=== PATIENT | male | born 1940 | race Caucasian/White ===

== ENCOUNTER 2017-01-13 10:56 | Emergency (ER) | payer MEDICARE ==
[~2017-01-13] VITALS: Ht 175.3 cm; Wt 68.5 kg
[~2017-01-13 10:56] MED LIST: ALFUZOSIN HCL10 MG PO; AMLODIPINE BESYL5 MG PO; ANDROGEL2.5 GM TD; ANDROGEL75 G1 TOP; ARICEPT10 MG PO; ASPIRIN EC325 MG PO; ATENOLOL50 MG PO; CITALOPRAM HBR20 MG PO; ELIQUIS5 MG PO; FLUTICASONE PRO16 GM NS; INDOMETHACIN50 MG PO; KLOR-CON 1010 MEQ PO; LEVOTHYROXINE100 MCG PO; LEVOTHYROXINE88 MCG PO; LISINOPRIL20 MG PO; METOPROLOL TAR100 MG PO; METOPROLOL TART50 MG PO; NORCO 5-325 TA1 EACH PO; OCUVITE TABLET1 EAC1 PO; OMEPRAZOLE20 MG PO; PRAVASTATIN SOD20 MG PO; VIAGRA100 MG PO; VITAMIN C500 M1 PO; WARFARIN SODIUM5 MG PO; ZOVIRAX30 GM TOP
[2017-01-13] MEDS ORDERED: VITAMIN D32000 UNIT PO (11:17)
== END 2017-01-13 12:15 | disposition home or self-care (01) ==
LOC: ED 10:56
DX: T18.9XXA Foreign body of alimentary tract, part unspecified, initial encounter (principal); E03.9 Hypothyroidism, unspecified; I10 Essential (primary) hypertension; Z86.73 Personal history of transient ischemic attack (TIA), and cerebral infarction without residual deficits; Z79.899 Other long term (current) drug therapy
CPT/HCPCS: 70360; 71020; 99283

== ENCOUNTER 2017-09-03 10:35 | Emergency (ER) | payer MEDICARE ==
[~2017-09-03] VITALS: Ht 175.3 cm; Wt 67.1 kg
[~2017-09-03 10:35] MED LIST changes: +VITAMIN D32000 UNIT PO
[2017-09-03] MEDS ORDERED: CARBIDOPA-LEVO1 EAC1 PO (10:54)
== END 2017-09-03 13:12 | disposition home or self-care (01) ==
LOC: ED 10:35
DX: S63.501A Unspecified sprain of right wrist, initial encounter (principal); S80.211A Abrasion, right knee, initial encounter; S50.311A Abrasion of right elbow, initial encounter; S60.519A Abrasion of unspecified hand, initial encounter; W10.9XXA Fall (on) (from) unspecified stairs and steps, initial encounter; E03.9 Hypothyroidism, unspecified; I10 Essential (primary) hypertension; E11.9 Type 2 diabetes mellitus without complications; I48.91 Unspecified atrial fibrillation; Z86.73 Personal history of transient ischemic attack (TIA), and cerebral infarction without residual deficits; Z79.899 Other long term (current) drug therapy
CPT/HCPCS: 70450; 73090; 73130; 99284

== ENCOUNTER 2018-11-29 10:10 | Observation (INO) | payer MEDICARE, OTHER ==
[~2018-11-29] VITALS: Ht 175.3 cm; Wt 65.7 kg
[~2018-11-29 10:10] MED LIST changes: +CARBIDOPA-LEVO1 EAC1 PO
--- NOTE | 2018-11-29 15:21 | NUR ---
REPORT RECEIVED FROM EMI MANUEL RN
--- NOTE | 2018-11-29 16:30 | NUR ---
PATIENT ARRIVED ON MED SURG. DR. BECERRA IN TO SEE PATIENT, REPOSITIONING PATIENT EXERCISES TO HELP REDUCE VERTIGO. PATIENT HAS HAD SNACK, ORDERED DINNER, AT BEDSIDE. PATIENT DENIES PAIN OR NAUSEA. PATIENT IS ONE TO TWO PERSON ASSIST TO USE URINAL AT BEDSIDE.
--- NOTE | 2018-11-29 17:48 | NUR ---
PATIENT AMBULATED TO BATHROOM WITH FAMILY ASSISTANCE, SPOUSE REPORTED NO DIZZINESS, USUAL GAIT. ENCOURAGED FAMILY TO CALL FOR NURSE ASSISTANCE.
--- NOTE | 2018-11-29 18:30 | NUR ---
PATIENT IN BED, FAMILY IN ROOM. FRESH WATER GIVEN. CALL LIGHT IN REACH. NO FURTHER NEEDS AT THIS TIME.
--- NOTE | 2018-11-29 18:43 | NUR ---
PATIENT IS SLEEPING WITH REGULAR RESPIRATIONS. FAMILY IN ROOM WITH PATIENT.
--- NOTE | 2018-11-29 20:14 | NUR ---
ROUNDED CHARGE. PATIENT IS RESTING IN BED. PATIENT DENIES ANY COMMENTS, QUESTIONS, OR CONCERNS. NO NEEDS NOTED. CALL LIGHT IN REACH.
--- NOTE | 2018-11-29 22:27 | NUR ---
PATIENT TOOK HIS PM PILLS WITHOUT DIFFICULTY, BUT ONLY ORIENTED TO SELF. PATIENT DID GET UP TO BEDSIDE COMODE AND VOIDED 250MLS AND TRIED TO HAVE A BM, BUT WAS UNSUCCESSFUL AND REFUSED TRYING ANY PURA JUICE OR OTHER POSSIBLE STOOL PROGRAM OPTIONS AT THIS TIME. CALL LIGHT IN REACH. BED ALARM ON AND PATIENT RESTING QUIETLY AT THIS TIME WITH EYES CLOSED.
--- NOTE | 2018-11-29 23:19 | NUR ---
PATIENT RESTING QUIETLY IN LOW FOWLERS POSITION, SUPINE, EYES CLOSED, RESPIRATIONS REGULAR AND EVEN, AND PATIENT CAN BE SEEN FROM THE NURSES DESK. BED ALARM REMAINS ON. CALL LIGHT IS IN REACH.
--- NOTE | 2018-11-30 01:12 | NUR ---
PATIENT JUST UP TO THE BATHROOM WITH OENAL MARTINEZ TO VOID WITH 1PA AND THEN BACK TO BED. PATIENT HAD NO COMPLAINTS OR OTHER NEEDS. RESTING QUIETLY AGAIN NOW WITH HIS EYES CLOSED. BED ALARM ON.
--- NOTE | 2018-11-30 03:55 | NUR ---
PATIENT RESTING QUIETLY, BUT IS AWAKE AND ASKED WHAT TIME IT WAS AND I LET HIM KNOW WHAT TIME IT WAS. PATIENT STILL NEEDS CONSTANT REDIRECTION HE IS ONLY ORIENTED TO HIMSELF AND HIS . BED ALARM IS ON. PATIENT SAID HE NEEDS NOTHING AT THIS TIME AND IS WARM ENOUGH AND GOING TO TRY AND GET MORE SLEEP. CALL LIGHT IN REACH.
--- NOTE | 2018-11-30 04:47 | NUR ---
PATIENT HAS PRETTY MUCH RESTED WITH HIS EYES CLOSD MOST OF THE NIGHT IN BED. UP A COUPLE OF TIMES TO THE RESTROOM WITH 1PSBA. PATIENT DENIES HGAVING ANY PAIN, BUT HAS TO BE REORIENTED FREQUENTLY HE SEEMS ONLY ORIENTED TO HIMSELF AND HIS , ALTHOUGH HE KNOWS THAT HE IS FORGETFUL. CALL LIGHT IN REACH AND BED ALARM ON.
--- NOTE | 2018-11-30 06:25 | NUR ---
PATIENTS BED ALARM NOTIFIED STAFF. PATIENT ASSISTED TO THE RESTROOM. PATIENT WAS ABLE TO VOID. PATIENTS INTAKE AND OUPUT RECORDED. PATIENT IS BACK IN BED RESTING. NO FURTHER NEEDS NOTED. CALL LIGHT IN REACH. BED ALARM ON FOR SAFETY.
--- NOTE | 2018-11-30 07:44 | NUR ---
REPORT RECIEVED FROM DOG GROOMER RN. PT IN BED, AWAKE. BED ALARM IN PLACE. VISIBLE FROM NURSING STATION. SBA TO CHAIR FOR BREAKFAST. AT BEDSIDE. CALL LIGHT WITHIN REACH.
[2018-11-30] MEDS ORDERED: METOPROLOL SUCC50 MG PO (10:20)
[2018-11-30] MEDS ORDERED: LEVOTHYROXINE88 MCG PO (11:06)
--- NOTE | 2018-11-30 11:07 | NUR ---
MED REC COMPLETE
--- NOTE | 2018-11-30 11:30 | NUR ---
SPOKE WITH PATIENT AND FAMILY IN ROOM. PRESENT ARE HIS REED, DAUGHTER AND GRANDDAUGHTER. PATIENT HAS UNDERLINING DEMENTIA, BUT IS PLEASANT AND MOSTLY UNDERSTANDS WHERE HE IS. 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 THEY HAVE A FEW STEPS TO HOME, HE IS AMBULATORY BUT RECENTLY OFF BALANCE. HE HAS NOT NEEDED AMBULATION DEVICES. THEY INTEND TO TAKE HIM HOME, BUT ARE INTERESTED IN HOME HEALTH FOR PT OT AT HOME. DISCUSSED OPTIONS, [facility] WILL BE CONTACTED PER THEIR REQUEST. QUESTIONS ANSWERED.
--- NOTE | 2018-11-30 11:45 | NUR ---
DR BECERRA IN TO ROUND ON PATIENT. PLAN OF CARE DISCUSSED. QUESTIONS ANSWERED. PLAN FOR DISCHARGE.
--- NOTE | 2018-11-30 12:56 | NUR ---
I WAS INFORMED THAT PT WOULD BE DC'D TODAY THIS PM. PT WAS SITTING IN CHAIR, EATING LUNCH WITH AND OTHER FAMILY PRESENT. PT IS ALITTLE SLOW TO RESPOND, METHODICAL IN HIS RESPONSES BUT ON POINT. REED IS VERY ATTENTIVE TO PT'S NEEDS, BY HIS SIDE ALWAYS. PT JOKED ABOUT GETTING SECOND HAND FOOD- HE IS FEELING BETTER. EXTENDED A BLESSING, WILL FOLLOW NEEDED
--- NOTE | 2018-11-30 15:19 | NUR ---
ORDER AND CLINICALS SCANNED TO [facility]. CALLED THEM [phone] AND SPOKE WITH CAMILO THAT ORDERS WERE SENT TO [facility]. SHE STATES [facility] WAS ON THE OTHER LINE, SHE WILL GIVE HER THE MESSAGE.
== END 2018-11-30 13:21 | disposition home health service (06) ==
LOC: ED 10:10 → MS 15:05
PROVIDERS: ADMIT Internal Medicine
DX: H81.10 Benign paroxysmal vertigo, unspecified ear (principal); G31.83 Neurocognitive disorder with Lewy bodies; F02.80 Dementia in other diseases classified elsewhere, unspecified severity, without behavioral disturbance, psychotic disturbance, mood disturbance, and anxiety; E03.9 Hypothyroidism, unspecified; I10 Essential (primary) hypertension; R51 Headache; I48.0 Paroxysmal atrial fibrillation; Z86.73 Personal history of transient ischemic attack (TIA), and cerebral infarction without residual deficits; Z66 Do not resuscitate; Z79.899 Other long term (current) drug therapy; Z79.01 Long term (current) use of anticoagulants
CPT/HCPCS: 70450; 80053; 85025; 97110; 97162; 99285-25; G0378

== ENCOUNTER 2018-12-03 22:29 | Emergency (ER) | payer MEDICARE, OTHER ==
[~2018-12-03] VITALS: Ht 175.3 cm; Wt 65.7 kg
[~2018-12-03 22:29] MED LIST changes: +METOPROLOL SUCC50 MG PO
--- OUTSIDE RECORDS SUMMARY | 2018-12-03 22:32 | XMS ---
PreManage Notification: ZACKERY TRAVIS Security Nurse Practitioner Physicians Assistant Events No recent Security Events currently on file CRITERIA MET - [facility] - 2 Visits in 30 Days CARE PROVIDERS Malvin Frias MD Primary Care Current PHONE: Unknown orалександр Case or Industrial Renderer Current PHONE: Unknown Manny has no Care Guidelines for this patient. EMary VISIT COUNT ([address] [facility] TOTAL 2 NOTE: Visits indicate total known visits. ED/UCC VISIT TRACKING (12 MO.) 12/03/2018 22:29 [facility] [place] TYPE: Emergency COMPLAINT: - CHEST PAIN 11/29/2018 10:11 [facility] [place] TYPE: Emergency COMPLAINT: - DIZZINESS, FEELING FAINT INPATIENT VISIT TRACKING (12 MO.) 11/29/2018 15:05 [facility] [place] TYPE: Observation COMPLAINT: - VERTIGO DIAGNOSES: - Headache - Hypothyroidism, unspecified - Do not resuscitate - Dizziness and giddiness - Dementia with Lewy bodies - Benign paroxysmal vertigo, unspecified ear - terminal supervisor (current) use of anticoagulants - Essential (primary) hypertension - Paroxysmal atrial fibrillation - Other senior care (current) drug therapy - Dementia in oth diseases classd elswhr w/o behavrl disturb - Prsnl hx of TIA (TIA), and cereb infrc w/o resid deficits [email or web address]
--- NOTE | 2018-12-04 15:57 | EKG ---
[facility] [address] [place] [address] elevation, consider inferior injury or acute infarct ACUTE NC / STEMI Abnormal ECG When compared with ECG of 03-DEC-2018 22:32, (Unconfirmed) No significant change was found Confirmed by APRIL CAMPOS DO ([id number]) on 12/04/2018 3:57:39 PM Electronically Signed By: APRIL CAMPOS DO 12/04/18 1557 PATIENT NAME: ZACKERY TRAVIS Electrocardiogram DATE OF : 44 PHYSICIAN: APRIL CAMPOS DO REPORT #: [id number] REPORT IS CONFIDENTIAL AND NOT TO BE RELEASED WITHOUT AUTHORIZATION
--- NOTE | 2018-12-04 15:57 | EKG ---
[facility] [address] [facility] [place], [place] [address] Signed Sinus bradycardia Poor data quality Abnormal ECG No previous ECGs available Confirmed by APRIL CAMPOS DO ([id number]) on 12/04/2018 3:57:15 PM Electronically Signed By: APRIL CAMPOS DO 12/04/18 1557 PATIENT NAME: ZACKERY TRAVIS Electrocardiogram DATE OF : 44 PHYSICIAN: APRIL CAMPOS DO REPORT #: [id number] REPORT IS CONFIDENTIAL AND NOT TO BE RELEASED WITHOUT AUTHORIZATION
== END 2018-12-03 23:40 | disposition short-term general hospital (02) ==
LOC: ED 22:29
DX: I21.19 ST elevation (STEMI) myocardial infarction involving other coronary artery of inferior wall (principal); E03.9 Hypothyroidism, unspecified; Z86.73 Personal history of transient ischemic attack (TIA), and cerebral infarction without residual deficits; Z79.899 Other long term (current) drug therapy
CPT/HCPCS: 71045; 80053; 83735; 84484; 85025; 85610; 93005; 93010; 96374; 96375; 99285-25; J2270; J2405

== ENCOUNTER 2019-07-04 02:46 | Emergency (ER) | payer MEDICARE, OTHER ==
[~2019-07-04] VITALS: Ht 175.3 cm; Wt 65.3 kg
--- OUTSIDE RECORDS SUMMARY | 2019-07-04 02:48 | XMS ---
PreManage Notification: ZACKERY TRAVIS Security Italian Lecturer Events No recent Security Events currently on file CRITERIA MET - [facility] - Has Care Guidelines CARE PROVIDERS PAULO LOPEZ Internal Medicine 12/04/2018-Current PHONE: Unknown Manny has no Care Guidelines for this patient. Care History Medical/Surgical 12/04/2018 [facility] - Patient is currently established with [facility]. If patient is seen in the ED during business hours. Please contact CHWs at [facility]. Care Recommendation: This patient has had 5 or more Emergency Department visits in the last 12 months.\T\nbsp; Patient requires education on the scope and purpose of the ED as an acute care provider not a Primary Care Provider and should not be utilized for chronic conditions.\T\nbsp; These are guidelines and the provider should exercise clinical judgment when providing care. E.[facility]. [facility] MO[facility] TOTAL 4 NOTE: Visits indicate total known visits. ED/UCC VISIT TRACKING (12 MO.) 07/04/2019 02:47 [facility] TYPE: Emergency COMPLAINT: - FALL 12/03/2018 23:[address] 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 11/29/2018 10:11 [facility] [place] TYPE: Emergency COMPLAINT: - DIZZINESS, FEELING FAINT INPATIENT VISIT TRACKING (12 MO.) 12/03/2018 23:45 [facility] [place] [facility] TYPE: Medical Surgical DIAGNOSES: - ST elevation (STEMI) myocardial infarction involving right co - Cerebral infarction, unspecified - ST elevation (STEMI) myocardial infarction involving left isha - ST elevation (STEMI) myocardial infarction of unspecified sit 11/29/2018 15:05 [facility] [place] TYPE: Observation COMPLAINT: - VERTIGO DIAGNOSES: - Headache - Hypothyroidism, unspecified - Do not resuscitate - Dizziness and giddiness - Dementia with Lewy bodies - Benign paroxysmal vertigo, unspecified ear - prison (current) use of anticoagulants - Essential (primary) hypertension - Paroxysmal atrial fibrillation - 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
[2019-07-04] MEDS ORDERED: LIPITOR40 MG PO (03:06)
[2019-07-04] MEDS ORDERED: METOPROLOL SUCC25 MG PO (03:08)
[2019-07-04] MEDS ORDERED: MELATONIN10 M4 SL (03:09)
[2019-07-04] MEDS ORDERED: PLAVIX75 MG PO (03:10)
[2019-07-04] MEDS ORDERED: TURMERIC500 M2 PO (03:11)
== END 2019-07-04 05:20 | disposition home or self-care (01) ==
LOC: ED 02:46
DX: S10.93XA Contusion of unspecified part of neck, initial encounter (principal); S40.012A Contusion of left shoulder, initial encounter; S50.02XA Contusion of left elbow, initial encounter; S00.83XA Contusion of other part of head, initial encounter; E03.9 Hypothyroidism, unspecified; I48.91 Unspecified atrial fibrillation; Z79.899 Other long term (current) drug therapy; W18.30XA Fall on same level, unspecified, initial encounter
CPT/HCPCS: 70450; 70486; 72125; 73030; 73080; 99284-25

== ENCOUNTER 2019-10-13 04:05 | Emergency (ER) | payer MEDICARE, OTHER ==
[~2019-10-13] VITALS: Ht 175.3 cm; Wt 65.3 kg
[~2019-10-13 04:05] MED LIST changes: +LIPITOR40 MG PO; +MELATONIN10 M4 SL; +METOPROLOL SUCC25 MG PO; +PLAVIX75 MG PO; +TURMERIC500 M2 PO
--- OUTSIDE RECORDS SUMMARY | 2019-10-13 04:08 | XMS ---
PreManage Notification: ZACKERY TRAVIS Security Skid Strapper Events No recent Security Events currently on file CRITERIA MET - [facility] - Has Care Guidelines CARE PROVIDERS PAULO LOPEZ Internal Medicine 12/04/2018-Current PHONE: Unknown Manny has no Care Guidelines for this patient. Care History Medical/Surgical 12/04/2018 [facility] - Patient is currently established with [facility]. If patient is seen in the ED during business hours. Please contact CHWs at [facility]. Care Recommendation: This patient has had 5 [...] care. E.D. VISIT COUNT (12 MO.) 1 [place] [facility] TOTAL 5 NOTE: Visits indicate total known visits. ED/UCC VISIT TRACKING (12 MO.) 10/13/2019 04:05 [facility] [place] TYPE: Emergency COMPLAINT: - HEAD LACERATION 07/04/2019 02:47 [facility] [place] TYPE: Emergency COMPLAINT: - FALL DIAGNOSES: - Contusion of left elbow, initial encounter - Cervicalgia - Contusion of left shoulder, initial encounter - Fall on same level, unspecified, initial encounter - Contusion of other part of head, initial encounter - Contusion of unspecified part of neck, initial encounter - Hypothyroidism, unspecified - Unspecified atrial fibrillation - Other retirement (current) drug therapy 12/03/2018 23:45 [place] [facility] TYPE: Emergency DIAGNOSES: - ST elevation (STEMI) myocardial infarction of unspecified sit - Director Of Cloud Services 12/03/2018 22:29 [facility] [place] TYPE: Emergency COMPLAINT: - CHEST PAIN DIAGNOSES: - ST elevation (STEMI) myocardial infarction involving other co - Hypothyroidism, unspecified - Precordial pain - Personal history of transient ischemic attack (TIA), and cere - Other retirement (current) drug therapy 11/29/2018 10:11 [facility] [place] TYPE: Emergency COMPLAINT: - DIZZINESS, FEELING FAINT INPATIENT VISIT TRACKING (12 MO.) 12/03/2018 23:[address] [facility] TYPE: Medical Surgical DIAGNOSES: - ST elevation (STEMI) myocardial infarction involving right co - Cerebral infarction, unspecified - ST elevation (STEMI) myocardial infarction involving left isha - ST elevation (STEMI) myocardial infarction of unspecified sit 11/29/2018 15:05 [facility] [place] TYPE: Observation COMPLAINT: - VERTIGO DIAGNOSES: - Headache - Hypothyroidism, unspecified - Do not resuscitate - Dizziness and giddiness - Dementia with Lewy bodies - Benign paroxysmal vertigo, unspecified ear - correction (current) use of anticoagulants - Essential (primary) hypertension - Paroxysmal atrial fibrillation - Other retirement (current) drug therapy - Dementia in other diseases classified elsewhere without behav - Personal history of transient ischemic attack (TIA), and cere [email or web address]
[2019-10-13] MEDS ORDERED: DULOXETINE HCL20 MG PO (04:47)
== END 2019-10-13 16:08 | disposition home or self-care (01) ==
LOC: ED 04:05
DX: S01.01XA Laceration without foreign body of scalp, initial encounter (principal); R55 Syncope and collapse; E03.9 Hypothyroidism, unspecified; I48.91 Unspecified atrial fibrillation; I25.2 Old myocardial infarction; Z79.899 Other long term (current) drug therapy; W01.0XXA Fall on same level from slipping, tripping and stumbling without subsequent striking against object, initial encounter
CPT/HCPCS: 12005; 70450; 72125; 80053; 85025; 85610; 85730; 99284-25; J7030

== ENCOUNTER 2020-07-31 14:40 | Emergency (ER) | payer MEDICARE, OTHER ==
[~2020-07-31] VITALS: Ht 175.3 cm; Wt 74.8 kg
[~2020-07-31 14:40] MED LIST changes: +DULOXETINE HCL20 MG PO; +MELATONIN10 M2 PO
--- NOTE | 2020-07-31 18:08 | EKG ---
[facility] [address] [place] [address] Signed Atrial flutter with variable AV block with premature ventricular or aberrantly conducted complexes Abnormal ECG When compared with ECG of 03-DEC-2018 22:39, Atrial flutter has replaced Sinus rhythm Confirmed by CORONA COREA MD ([id number]) on 07/31/2020 6:08:02 PM Electronically Signed By: CORONA COREA MD 07/31/20 1808 PATIENT NAME: ZACKERY TRAVIS Electrocardiogram DATE OF : 44 PHYSICIAN: CORONA COREA MD REPORT #: [id number] REPORT IS CONFIDENTIAL AND NOT TO BE RELEASED WITHOUT AUTHORIZATION
== END 2020-07-31 17:05 | disposition home or self-care (01) ==
LOC: ED 14:40
DX: I48.92 Unspecified atrial flutter (principal); R40.4 Transient alteration of awareness; E03.9 Hypothyroidism, unspecified; I48.91 Unspecified atrial fibrillation; I25.2 Old myocardial infarction; Z79.899 Other long term (current) drug therapy
CPT/HCPCS: 80053; 81001; 85025; 93005; 93010; 99285-25